=== PATIENT | male | born 1980 | race Caucasian/White ===

== ENCOUNTER 2020-01-26 19:22 | Emergency (ER) | payer MEDICAID, SELFPAY ==
[2020-01-26 20:24] VITALS: BP 156/101; PULSE 89; RESP 18; TEMP 36.5; O2SAT 98; BMI 33.9
--- NOTE | 2020-01-26 21:32 | [facility].EDEYEP ---
ED Disposition Clinical Impression: Corneal abrasion Qualifiers: Encounter type: initial encounter Laterality: right Qualified Code(s): S05.01XA - Injury of conjunctiva and corneal abrasion without foreign body, right eye, initial encounter Disposition: Home, Self-Care Condition on Discharge: Good Instructions: DI for Corneal Abrasion Additional Instructions: see eye center for follow up Referrals: Melania Myers [Primary Care Provider] - - Critical Care Critical Care Time: No Attestation: On 01/26/20, the high probability of a clinically significant, sudden or life threatening deterioration of the following system(s) required my full and direct attention, intervention and personal management. The time I documented below is in addition to time spent performing reported procedures but includes the following listed in this critical care notation. Medical Decision Making - Medical Records Medical records reviewed: Yes: I reviewed the patient's medical records. - Ollie Inquiry Pt receiving controlled substance: No Vital Signs: 01/26/20 20:24 Temperature 97.7 F Temperature Source Oral Pulse Rate [Right Brachial] 89 Respiratory Rate 18 Blood Pressure [Right Arm] 156/101 H Blood Pressure Mean [Right Arm] 119 Blood Pressure Source [Right Arm] Automatic Cuff Blood Pressure Position [Right Arm] Sitting 02 Sat by Pulse Oximetry 98 Oxygen Delivery Method Room Air - Lab Data Lab results reviewed: Yes: I reviewed the patient's lab results. Orders (Tests/Meds): ED MEDICATIONS Discontinued Medications Generic Name Dose Route Start Last Admin Trade Name Freq PRN Reason Stop Dose Admin Tetanus/Reduced Diphtheria/Acell Pertussis 0.5 ml 01/26/20 21:31 Tet/Diphth/Pert-Adult 0.5ml Syringe IM 01/26/20 21:32 .ONCE ONE Eye Problem HPI - General Chief complaint: Eye Problems Stated complaint: AO 01/24 @1730 scratch R Eye Time Seen by Provider: 01/26/20 21:05 Mode of Arrival: Family Vehicle Source of Information: Patient, Relative, Medical Record Limitations: No Limitations Description of Symptoms (Recalled from ER Triage Doc. by RN): pt presents after injury his eye yesterday afternoon. stated he was trying to load a deer and one of the antler jabbed his right eye. no visual loss/change. states it lal really badly and wants to see if something is stuck in it - History of Present Illness HPI Narrative: rt eye injury last pm with pain and reddness - chief complaint: eye injury, foreign body Onset (ago): day(s) Onset description: other (as noted above ) Location: right eye Eye Symptoms: foreign body sensation, photophobia Place: street/outdoors Mechanism: direct trauma Severity: moderate Associated symptoms: none Treatments Prior to Arrival: none - Related Data Patient tetanus UTD: No Allergies Allergy/AdvReac Type Severity Reaction Status Date / Time codeine Allergy Verified 01/26/20 20:31 [facility] History - Hepatitis A Screen Drug use history?: No High risk sexual behaviors?: No History of sexually transmitted infection?: No Currently employed?: No Childcare worker?: No Do you have indoor plumbing?: Yes Do you have electricity?: Yes Attestation statement:: This patient has been screened for Hepatitis A risk factors. I have reviewed the patient's past medical history: Yes ROS Obtained: Yes All systems reviewed & no additional complaints - Constitutional Constitutional: Denies fever(s) - Eyes Eyes: Reports as per HPI, Denies change in vision, Reports sensitivity to light, Reports eye pain, Reports photophobia - ENT Ears, Nose, Mouth, and Throat: Denies sore throat - Cardiovascular Cardiovascular: Denies chest pain - Respiratory Respiratory: No cough - Musculoskeletal Musculoskeletal: Denies joint pain - Integumentary/Breasts Skin/Breast: Denies rash - Neurologic Neurologic: Denies headache(s), Denies seizure-like activity Physical Exam
[2020-01-26 22:10] VITALS: BP 110/75; PULSE 82; RESP 16; TEMP 36.7; O2SAT 98
== END 2020-01-26 22:12 | disposition home or self-care (01) ==
PROVIDERS: Emergency Provider Emergency Medicine; PCP Family Medicine
DX: S05.01XA Injury of conjunctiva and corneal abrasion without foreign body, right eye, initial encounter (principal); W22.8XXA Striking against or struck by other objects, initial encounter; Y92.89 Other specified places as the place of occurrence of the external cause
CPT/HCPCS: 90471; 90715; 99281